=== PATIENT | male | born 1945 | race Caucasian/White ===

== ENCOUNTER 2023-01-04 12:38 | Outpatient (CLI) | payer OTHER, SELFPAY ==
[2023-01-04 13:00] VITALS: PULSE 57; RESP 18; O2SAT 97
[2023-01-04 13:04] VITALS: PULSE 63
[2023-01-04] MEDS: albuterol 2.5 mg/3 mL Neb INHALATION (13:05)
== END 2023-01-04 12:39 | disposition home or self-care (01) ==
LOC: RT 12:38
PROVIDERS: Visit Provider Nurse Practitioner Family
DX: J44.9 Chronic obstructive pulmonary disease, unspecified (principal)
CPT/HCPCS: 94060